=== PATIENT | male | born 1970 | race American Indian/Alaskan Native ===

== ENCOUNTER 2020-09-03 18:08 | Emergency (ER) | payer SELFPAY ==
[2020-09-03 20:56] VITALS: BP 139/82
--- NOTE | 2020-09-03 20:57 | Event Note ---
ED Screening Note Date of service: 09/03/20 Time: 20:55 ED Screening Note: Patient 50-year-old black -Togolese male who presents for right index finger pain swelling and deformity x3 days. States he struck his finger on a metal pipe and now with swelling and erythema no drainage. Patient describes throbbing as 7/10. This initial assessment/diagnostic orders/clinical plan/treatment(s) is/are subject to change based on patients health status, clinical progression and re- assessment by fellow clinical providers in the ED. Further treatment and workup at subsequent clinical providers discretion. Patient/guardian urged not to elope from the ED as their condition may be serious if not clinically assessed and managed. Initial orders include:
--- NOTE | 2020-09-03 21:25 | XRay Report ---
RIGHT HAND 3 VIEW(S) INDICATION / CLINICAL INFORMATION: right index finger pain swelling erythema COMPARISON: None available. FINDINGS: BONES / JOINT(S): No acute fracture or subluxation. No significant arthritis. SOFT TISSUES: No significant abnormality. ADDITIONAL FINDINGS: None. Signer Name: Sylvester Mirza MD Signed: 09/03/2020 9:20 PM Workstation Name: [id number]
--- NOTE | 2020-09-03 23:49 | Emergency Department Report ---
Upper Extremity - HPI Chief Complaint: Extremity Injury, Upper Stated Complaint: RIGHT HAND INJURY Time Seen by Provider: 09/03/20 22:13 Upper Extremity: Right Ring Finger Occurred When: 3 Days Mechanism: Hit with Object, Other (Times dailyRegion with the tip of his finger resulting in pain with flexion to the distal interphalangeal joint region) Symptoms: Yes Pain with Movement, Yes Deformity, Yes Limited Range of Movement, Yes Swelling, No Numbness, No Weakness, No Bruising/Ecchymosis, No Laceration or Abrasion ED Review of Systems ROS: Stated complaint: RIGHT HAND INJURY Other details as noted in HPI Comment: All other systems reviewed and negative ED Past Medical Hx - Medications Home Medications: Home Medications Medication Instructions Recorded Confirmed Last Taken Type Ketorolac [Toradol] 10 mg PO Q6H PRN #14 tablet 09/03/20 Unknown Rx Upper Extremity Exam - Exam General: Vital signs noted. No distress. Alert and acting appropriately. Head and Torso: No HEENT Abnormality, No Neck Tenderness, No Chest/Lungs Abnormality, No Abdominal Tenderness, No Back Tenderness Shoulder Exam: Yes Normal Range of Motion in Shoulder, No Shoulder Tenderness, No Clavicle Tenderness, No Shoulder Deformity, No AC Joint Tenderness Arm Exam: No Arm/Humerus Tenderness, No Arm Deformity Elbow: No Elbow Tenderness, No Normal Range of Motion in Elbow, No Elbow Deformity Forearm: No Forearm Tenderness, No Forearm Deformity, No Pain with Pronation, No Pain with Supination Wrist: Yes Normal ROM in Wrist, No Wrist Tenderness, No Wrist Deformity, No Snuffbox Tenderness, No Pain with Axial Thumb Compression Hand: Yes Hand Tenderness, Yes Hand Deformity, Yes Normal ROM in Digit(s), Yes Digit(s) Deformity (At the distal interphalangeal joint region in a partially flexed position unable to extend), No Digit Tenderness, No Tendon Dysfunction CMS Exam: No Broken Skin, No Normal Distal Pulses, No Normal Capillary Refill, No Normal Distal Sensation ED Course Vital Signs 09/03/20 20:49 Temperature 98.8 F Pulse Rate 63 Respiratory 18 Rate Blood Pressure 139/82 [Right] O2 Sat by Pulse 99 Oximetry ED Medical Decision Making - Radiology Data Radiology results: report reviewed [facility] [address] [place] [address] XRay Report Signed Patient: AYLIN DUMONT MR#: [id number] : 1970 Acct:[id number] Age/Sex: 50 / M ADM Date: 09/03/20 Loc: ED Attending Dr: Ordering Physician: ANNIE LICEA NP Date of Service: 09/03/20 Procedure(s): XR hand 3+V RT Accession Number(s): [id number] cc: ANNIE LICEA NP Fluoro Time In Minutes: RIGHT HAND 3 VIEW(S) INDICATION / CLINICAL INFORMATION: right index finger pain swelling erythema COMPARISON: None available. FINDINGS: BONES / JOINT(S): No acute fracture or subluxation. No significant arthritis. SOFT TISSUES: No significant abnormality. ADDITIONAL FINDINGS: None. Signer Name: Sylvester Mirza MD Signed: 09/03/2020 9:20 PM Workstation Name: [id number] Transcribed By: SB Dictated By: SYLVESTER MIRZA MD Electronically Authenticated By: SYLVESTER MIRZA MD Signed Date/Time: 09/03/202119 DD/ 19 TD/TT: - Medical Decision Making 50-year-old male from his keys struck the tip of his finger which resulted in pain to the distal left phalangeal joint with some swelling a couple days ago which is not yet resolved. Presents emerge department wearing a brace for the finger to be evaluated for possible fracture. Critical care attestation.: If time is entered above; I have spent that time in minutes in the direct care of this critically ill patient, excluding procedure time. ED Disposition Clinical Impression: Mallet deformity of right ring finger Disposition: DC-01 TO HOME OR SELFCARE Is pt being admited?: No Does the pt Need Aspirin: No Condition: Stable Instructions: Mallet Finger Additional Instructions: Ice anti-inflammatories follow-up with with orthopedic Prescriptions: Ketorolac [Toradol] 10 mg PO Q6H PRN #14 tablet PRN Reason: Pain Referrals: CARLOS PHILLIPS MD [Primary Care Provider] - 3-5 Days PERNELL BARNEY MD [Staff Physician] - 3-5 Days
== END 2020-09-04 01:00 | disposition home or self-care (01) ==
LOC: ED 18:08
DX: M20.011 Mallet finger of right finger(s) (principal); Z79.899 Other long term (current) drug therapy

== ENCOUNTER 2021-08-26 05:25 | Observation (INO) | payer OTHER ==
[2021-08-26 06:24] LABS: Basophils # (Auto) 0.1 K/mm3 (0.0-0.1); Basophils % (Auto) 1.5 % (0.0-1.8); Eosinophils % (Auto) 0.8 % (0.0-4.3); Hematocrit 42.2 % (35.5-45.6); Hemoglobin 14.3 gm/dl (11.8-15.2); Lymphocytes # (Auto) 2.4 K/mm3 (1.2-5.4); Lymphocytes % (Auto) 47.9 % (13.4-35.0); Mean Corpuscular HGB Conc 34 % (32-34); Mean Corpuscular Volume 97 fl (84-94); Monocytes # (Auto) 0.7 K/mm3 (0.0-0.8); Monocytes % (Auto) 13.9 % (0.0-7.3); Platelet Count 265 K/mm3 (140-440); Red Blood Count 4.34 M/mm3 (3.65-5.03); Red Cell Distribution Width 13.8 % (13.2-15.2)
--- NOTE | 2021-08-26 06:25 | XRay Report ---
CHEST 2 VIEWS INDICATION / CLINICAL INFORMATION: CHEST PAIN. COMPARISON: None available. FINDINGS: SUPPORT DEVICES: None. HEART / MEDIASTINUM: Heart size and mediastinal contour appear within normal limits. LUNGS / PLEURA: No significant pulmonary or pleural abnormality. No pneumothorax. BONES: No significant osseous abnormality. ADDITIONAL FINDINGS: No significant additional findings. IMPRESSION: 1. No active cardiopulmonary disease. Signer Name: Casimiro Romo II, MD Signed: 08/26/2021 6:20 AM Workstation Name: [id number]
[2021-08-26 06:56] LABS: Alanine Aminotransferase 15 units/L (7-56); BUN/Creatinine Ratio 10; Blood Urea Nitrogen 8 mg/dL (9-20); Calcium 9.6 mg/dL (8.4-10.2); Hemolysis Index 4
[2021-08-26 07:32] LABS: Chol/HDL Ratio 2.15 %; HDL Cholesterol 83 mg/dL (40-59); LDL Cholesterol,Direct 94 mg/dL (50-130)
--- NOTE | 2021-08-26 07:43 | Event Note ---
Date: 08/26/21 (0743) elevated troponin noted charge nurse - no answer on phone unit assistant and MD aware
--- NOTE | 2021-08-26 18:58 | Electrocardiograph Report ---
[facility] Test Date: 2021-08-26 Test Time: 05:30:41 Pat Name: AYLIN DUMONT Department: Room: Gender: M Drafter Patent: DANELLE : 1970 Requested By: ED DOC Order Number: [id number] Reading MD: Lizzie Neal Measurements Intervals [place] Rate: 56 P: 24 [place]: 106 QRS: 82 QRSD: 79 T: 119 QT: 538 QTc: 520 Interpretive Statements Sinus rhythm Anteroseptal infarct, age indeterminate Abnormal T, consider ischemia, lateral leads Prolonged QT interval No previous ECG available for comparison Electronically Signed On 08-26-2021 18:58:26 EDT by Lizzie Neal
[2021-08-26] MEDS ORDERED: MORPHINE 4 MG/1 ML INJ IV ONE (20:51)
[2021-08-26] MEDS ORDERED: ASPIRIN 81 MG TAB CHEW PO ONE (20:52)
[2021-08-26] MEDS ORDERED: HEPARIN 10,000 UNITS/10 ML VIAL IV ONE (22:24)
[2021-08-26] MEDS ORDERED: ONDANSETRON 4 MG/2 ML INJ IV PRN (22:49)
[2021-08-26] MEDS ORDERED: traMADol 50 MG TAB PO PRN (22:49)
[2021-08-26] MEDS ORDERED: MORPHINE 4 MG/1 ML INJ IV PRN ×2 (22:49)
[2021-08-26] MEDS ORDERED: MAGNESIUM HYDROXIDE (MOM) ORAL LIQD UDC PO PRN (22:49)
[2021-08-26] MEDS ORDERED: NITROGLYCERIN 0.4 MG TAB SUBL SL PRN (22:49)
[2021-08-26] MEDS ORDERED: ACETAMINOPHEN 325 MG TAB PO PRN ×2 (22:49)
[2021-08-26] MEDS ORDERED: MORPHINE 2 MG/1 ML INJ IV PRN (22:49)
--- NOTE | 2021-08-26 23:01 | History and Physical Report ---
History of Present Illness Date of examination: 08/26/21 Date of admission: 08/26/2021 Chief complaint: Chest pain History of present illness: 51-year-old -Vincentian male with no significant past medical history presenting to the emergency room today complaining of chest pain. Chest pain felt like pressure in the midsternal region radiating to both upper extremities. There has been no known relieving or exacerbating factor. Denies any nausea or vomiting and no abdominal pain. Denies any headache or dizziness no diaphoresis. Patient denies having similar symptoms in the past. Patient admits that he smokes more than a pack of cigarettes on significant findings were that of 1 daily basis. He has never had any cardiac work-up. Work-up in the emergency room today, significant findings were slightly elevated troponin of 0.77. EKG shows some T wave depression in V2. Chest x-ray was unremarkable. Patient has been admitted for NSTEMI. Past History Past Medical History: No medical history Past Surgical History: No surgical history Social history: smoking (Current daily smoker) Family history: no significant family history Medications and Allergies Allergies Allergy/AdvReac Type Severity Reaction Status Date / Time No Known Allergies Allergy Verified 09/03/20 21:57 Home Medications Medication Instructions Recorded Confirmed Last Taken Type Ketorolac [Toradol] 10 mg PO Q6H PRN #14 tablet 09/03/20 Unknown Rx Active Meds: Active Medications Acetaminophen (Acetaminophen 325 Mg Tab) 650 mg PO Q4H PRN PRN Reason: Pain MILD(1-3)/Fever >100.5/GARCIA Aspirin (Aspirin Ec 325 Mg Tab) 325 mg PO QDAY MCKENNA Magnesium Hydroxide (Magnesium Hydroxide (Mom) Oral Liqd Udc) 30 ml PO Q4H PRN PRN Reason: Constipation Morphine Sulfate (Morphine 2 Mg/1 Ml Inj) 2 mg IV Q4H PRN PRN Reason: Pain, Moderate (4-6) Morphine Sulfate (Morphine 4 Mg/1 Ml Inj) 4 mg IV Q4H PRN PRN Reason: Pain , Severe (7-10) Morphine Sulfate (Morphine 4 Mg/1 Ml Inj) 2 mg IV Q5MIN PRN PRN Reason: Chest Pain unrelieved by NTG Nitroglycerin (Nitroglycerin 0.4 Mg Tab Subl) 0.4 mg SL Q5M PRN PRN Reason: Chest Pain Ondansetron HCl (Ondansetron 4 Mg/2 Ml Inj) 4 mg IV Q8H PRN PRN Reason: Nausea And Vomiting Sodium Chloride (Sodium Chloride 0.9% 10 Ml Flush Syringe) 10 ml IV BID MCKENNA Sodium Chloride (Sodium Chloride 0.9% 10 Ml Flush Syringe) 10 ml IV PRN PRN PRN Reason: LINE FLUSH Sodium Chloride (Sodium Chloride 0.9% 10 Ml Flush Syringe) 10 ml IV PRN PRN PRN Reason: LINE FLUSH Tramadol HCl (Tramadol 50 Mg Tab) 50 mg PO Q6H PRN PRN Reason: Pain, Moderate (4-6) Review of Systems Constitutional: no fever, no chills Ears, nose, mouth and throat: no nasal congestion, no sore throat Cardiovascular: chest pain, no palpitations Respiratory: no cough, no shortness of breath Gastrointestinal: no abdominal pain, no nausea, no vomiting, no diarrhea Genitourinary Male: no dysuria, no hematuria, no nocturia Musculoskeletal: no neck pain, no low back pain Integumentary: no rash, no pruritis Psychiatric: no anxiety, no depression Endocrine: no polyphagia, no polydipsia, no polyuria, no nocturia Exam - Constitutional Vitals: Temp Pulse Resp BP Pulse Ox 98.0 F 53 L 17 129/87 99 08/26/21 05:28 08/26/21 22:01 08/26/21 22:01 08/26/21 22:01 08/26/21 22:01 General appearance: Present: no acute distress, well-nourished - EENT Eyes: Present: PERRL, EOM intact. Absent: scleral icterus ENT: hearing intact, clear oral mucosa, dentition normal - Neck Neck: Present: supple, normal ROM - Respiratory Respiratory effort: normal Respiratory: bilateral: CTA - Cardiovascular Rhythm: regular Heart Sounds: Present: S1 & S2. Absent: gallop, systolic murmur, diastolic murmur, rub, click - Extremities Extremities: no ischemia, pulses intact, pulses symmetrical, No edema, normal temperature, Full ROM Peripheral Pulses: within normal limits - Abdominal General gastrointestinal: Present: soft, non-tender, non-distended, normal bowel sounds. Absent: mass - Integumentary Integumentary: Present: clear, warm, dry, normal turgor. Absent: rash - Musculoskeletal Musculoskeletal: strength equal bilaterally - Psychiatric Psychiatric: appropriate mood/affect, intact judgment & insight, memory intact, cooperative - Neurologic Neurologic: CNII-XII intact, no focal deficits, moves all extremities HEART Score - HEART Score History: Moderately suspicious EKG: Non-specific Age: 45-65 Risk factors: 1-2 risk factors Troponin: Troponin T 0.018 ng/mL (0.00-0.029) 08/26/21 17:41 Troponin: 1-3x normal limit HEART Score: 5 Results - Labs CBC & Chem 7: 08/26/21 23:07 08/26/21 23:07 Labs: Abnormal lab results 08/26/21 08/26/21 08/26/21 Range/Units 06:04 06:04 08:29 MCV 97 H (84-94) fl MCH 33 H (28-32) pg Lymph % (Auto) 47.9 H (13.4-35.0) % [place] % (Auto) 13.9 H (0.0-7.3) % Seg Neutrophils % 35.9 L (40.0-70.0) % BUN 8 L (9-20) mg/dL Glucose 108 H (75-100) mg/dL Troponin T 0.077 H 0.069 H (0.00-0.029) ng/mL HDL Cholesterol 83 H (40-59) mg/dL Assessment and Plan Assessment: 1. Chest pain 2. NSTEMI 3. Tobacco abuse Plan: 1. Patient admitted and placed on telemetry. We will check serial cardiac enzymes. 2. Patient will be scheduled for stress test and echocardiogram. 3. Counseled on quitting tobacco use. 4. Consult placed to cardiology for evaluation. DVT prophylaxis: Patient currently on heparin drip. CODE STATUS: Full code
--- NOTE | 2021-08-26 23:16 | Emergency Department Report ---
ED Chest Pain HPI - General Chief Complaint: Chest Pain Stated Complaint: CHEST PAIN Time Seen by Provider: 08/26/21 20:49 Source: patient Mode of arrival: Ambulatory Limitations: No Limitations - History of Present Illness Initial Comments: Who presents with chest pain that has been going on for the last 3 days. Patient states chest pain is moderate is a pressure feeling on his chest he states that it radiates to his arms. He has no nausea or vomiting. He states he has never had chest pain like this before in the past. Severity scale (0 -10): 6 - Related Data Previous Rx's Medication Instructions Recorded Last Taken Type Ketorolac [Toradol] 10 mg PO Q6H PRN #14 tablet 09/03/20 Unknown Rx Allergies Allergy/AdvReac Type Severity Reaction Status Date / Time No Known Allergies Allergy Verified 09/03/20 21:57 Heart Score - HEART Score History: Moderately suspicious EKG: Non-specific Age: 45-65 Risk factors: 1-2 risk factors Troponin: 1-3x normal limit HEART Score: 5 - EKG Read Time Time EKG Completed: 10:00 EKG Read Time: 10:15 ED Review of Systems ROS: Stated complaint: CHEST PAIN Other details as noted in HPI Constitutional: denies: chills, fever Eyes: denies: eye pain, eye discharge, vision change ENT: denies: ear pain, throat pain Respiratory: denies: cough, shortness of breath, wheezing Cardiovascular: chest pain. denies: palpitations Endocrine: no symptoms reported Gastrointestinal: denies: abdominal pain, nausea, diarrhea Genitourinary: denies: urgency, dysuria Musculoskeletal: denies: back pain, joint swelling, arthralgia Skin: denies: rash, lesions Neurological: denies: headache, weakness, paresthesias Psychiatric: denies: anxiety, depression Hematological/Lymphatic: denies: easy bleeding, easy bruising ED Past Medical Hx - Medications Home Medications: Home Medications Medication Instructions Recorded Confirmed Last Taken Type Ketorolac [Toradol] 10 mg PO Q6H PRN #14 tablet 09/03/20 Unknown Rx ED Physical Exam - General Limitations: No Limitations General appearance: alert, in no apparent distress - Head Head exam: Present: atraumatic, normocephalic - Eye Eye exam: Present: normal appearance - ENT ENT exam: Present: mucous membranes moist - Neck Neck exam: Present: normal inspection - Respiratory Respiratory exam: Present: normal lung sounds bilaterally. Absent: respiratory distress - Cardiovascular Cardiovascular Exam: Present: regular rate, normal rhythm. Absent: systolic murmur, diastolic murmur, rubs, gallop - GI/Abdominal GI/Abdominal exam: Present: soft, normal bowel sounds - Rectal Rectal exam: Present: deferred - Extremities Exam Extremities exam: Present: normal inspection - Back Exam Back exam: Present: normal inspection - Neurological Exam Neurological exam: Present: alert, oriented X3 - Psychiatric Psychiatric exam: Present: normal affect, normal mood - Skin Skin exam: Present: warm, dry, intact, normal color. Absent: rash ED Course Vital Signs 08/26/21 08/26/21 08/26/21 05:28 19:21 19:31 Temperature 98.0 F Pulse Rate 62 64 62 Respiratory 20 22 19 Rate Blood Pressure 159/92 O2 Sat by Pulse 100 100 99 Oximetry 08/26/21 08/26/21 08/26/21 19:45 20:01 20:15 Temperature Pulse Rate 68 65 65 Respiratory 17 14 15 Rate Blood Pressure 128/88 128/88 O2 Sat by Pulse 99 99 99 Oximetry 08/26/21 08/26/21 08/26/21 20:31 20:45 21:01 Temperature Pulse Rate 64 64 59 L Respiratory 12 12 21 Rate Blood Pressure 128/88 128/88 129/87 O2 Sat by Pulse 99 99 100 Oximetry 08/26/21 08/26/21 08/26/21 21:15 21:31 21:45 Temperature Pulse Rate 61 63 53 L Respiratory 15 16 15 Rate Blood Pressure 129/87 129/87 129/87 O2 Sat by Pulse 99 99 98 Oximetry 08/26/21 22:01 Temperature Pulse Rate 53 L Respiratory 17 Rate Blood Pressure 129/87 O2 Sat by Pulse 99 Oximetry CAMDEN score - Camden Score Age > 65: (0) No Aspirin use within the Past 7 Days: (0) No 3 or more CAD Risk Factors: (0) No 2 or more Angina events in past 24 hrs: (0) No Known CAD with more than 50% Stenosis: (0) No Elevated Cardiac Markers: (1) Yes ST Deviation Greater than 0.5mm: (0) No CAMDEN Score: 1 ED Medical Decision Making - Lab Data Result diagrams: 08/26/21 06:04 08/26/21 06:04 Lab Results 08/26/21 08/26/21 08/26/21 Range/Units 06:04 06:04 08:29 WBC 4.9 (4.5-11.0) K/mm3 RBC 4.34 (3.65-5.03) M/mm3 Hgb 14.3 (11.8-15.2) gm/dl Hct 42.2 (35.5-45.6) % MCV 97 H (84-94) fl MCH 33 H (28-32) pg MCHC 34 (32-34) % RDW 13.8 (13.2-15.2) % Plt Count 265 (140-440) K/mm3 Lymph % (Auto) 47.9 H (13.4-35.0) % [place] % (Auto) 13.9 H (0.0-7.3) % Eos % (Auto) 0.8 (0.0-4.3) % Baso % (Auto) 1.5 (0.0-1.8) % Lymph # (Auto) 2.4 (1.2-5.4) K/mm3 [place] # (Auto) 0.7 (0.0-0.8) K/mm3 Eos # (Auto) 0.0 (0.0-0.4) K/mm3 Baso # (Auto) 0.1 (0.0-0.1) K/mm3 Seg Neutrophils % 35.9 L (40.0-70.0) % Seg Neutrophils # 1.8 (1.8-7.7) K/mm3 Sodium 141 (137-145) mmol/L Potassium 4.0 (3.6-5.0) mmol/L Chloride 103.1 (98-107) mmol/L Carbon Dioxide 23 (22-30) mmol/L Anion Gap 19 mmol/L BUN 8 L (9-20) mg/dL Creatinine 0.8 (0.8-1.3) mg/dL Estimated GFR > 60 ml/min BUN/Creatinine Ratio 10 % Glucose 108 H (75-100) mg/dL Calcium 9.6 (8.4-10.2) mg/dL Total Bilirubin 0.60 (0.1-1.2) mg/dL AST 29 (5-40) units/L ALT 15 (7-56) units/L Alkaline Phosphatase 57 (35-129) units/L Troponin T 0.077 H 0.069 H (0.00-0.029) ng/mL Total Protein 6.9 (6.3-8.2) g/dL Albumin 4.0 (3.9-5) g/dL Albumin/Globulin Ratio 1.4 % Triglycerides 87 (2-149) mg/dL Cholesterol 179 (50-199) mg/dL LDL Cholesterol Direct 94 (50-130) mg/dL HDL Cholesterol 83 H (40-59) mg/dL Cholesterol/HDL Ratio 2.15 % 08/26/21 Range/Units 17:41 WBC (4.5-11.0) K/mm3 RBC (3.65-5.03) M/mm3 Hgb (11.8-15.2) gm/dl Hct (35.5-45.6) % MCV (84-94) fl MCH (28-32) pg MCHC (32-34) % RDW (13.2-15.2) % Plt Count (140-440) K/mm3 Lymph % (Auto) (13.4-35.0) % [place] % (Auto) (0.0-7.3) % Eos % (Auto) (0.0-4.3) % Baso % (Auto) (0.0-1.8) % Lymph # (Auto) (1.2-5.4) K/mm3 [place] # (Auto) (0.0-0.8) K/mm3 Eos # (Auto) (0.0-0.4) K/mm3 Baso # (Auto) (0.0-0.1) K/mm3 Seg Neutrophils % (40.0-70.0) % Seg Neutrophils # (1.8-7.7) K/mm3 Sodium (137-145) mmol/L Potassium (3.6-5.0) mmol/L Chloride (98-107) mmol/L Carbon Dioxide (22-30) mmol/L Anion Gap mmol/L BUN (9-20) mg/dL Creatinine (0.8-1.3) mg/dL Estimated GFR ml/min BUN/Creatinine Ratio % Glucose (75-100) mg/dL Calcium (8.4-10.2) mg/dL Total Bilirubin (0.1-1.2) mg/dL AST (5-40) units/L ALT (7-56) units/L Alkaline Phosphatase (35-129) units/L Troponin T 0.018 (0.00-0.029) ng/mL Total Protein (6.3-8.2) g/dL Albumin (3.9-5) g/dL Albumin/Globulin Ratio % Triglycerides (2-149) mg/dL Cholesterol (50-199) mg/dL LDL Cholesterol Direct (50-130) mg/dL HDL Cholesterol (40-59) mg/dL Cholesterol/HDL Ratio % - EKG Data -: EKG Interpreted by Me - EKG Data 08/26/21 23:26 EKG time 22: 01 rate 52 sinus bradycardia anteroseptal infarct T wave inversions in V2 and V T3 prolonged QT interval impression abnormal EKG - Radiology Data Radiology results: report reviewed Chest x-ray: Shows no acute cardiopulmonary disease - Medical Decision Making Chief medical diagnosis: Non-STEMI Differential medical diagnosis: Arrhythmia, acute coronary syndrome I will get 3 sets of troponin I will admit patient to the hospital I will give patient aspirin morphine I will reevaluate the patient Critical care attestation.: If time is entered above; I have spent that time in minutes in the direct care of this critically ill patient, excluding procedure time. ED Disposition Clinical Impression: Non-STEMI (non-ST elevated myocardial infarction) Disposition: ADMITTED INPATIENT Is pt being admited?: Yes Does the pt Need Aspirin: No Condition: Stable
[2021-08-26 23:35] LABS: Hematocrit 43.6 % (35.5-45.6); Hemoglobin 14.8 gm/dl (11.8-15.2); Mean Corpuscular HGB Conc 34 % (32-34); Mean Corpuscular Volume 99 fl (84-94); Platelet Count 271 K/mm3 (140-440); Red Blood Count 4.42 M/mm3 (3.65-5.03)
[2021-08-26 23:49] LABS: BUN/Creatinine Ratio 11; Blood Urea Nitrogen 9 mg/dL (9-20); Calcium 9.8 mg/dL (8.4-10.2); Hemolysis Index 3
[2021-08-27] MEDS ORDERED: MAGNESIUM SULFATE 2 GM/50 ML BAG IV ONE
[2021-08-27 02:11] LABS: Band Neutrophils # (Manual) 0.1 K/mm3; Basophils % (Manual) 0 % (0.0-1.8); Eosinophils % (Manual) 0 % (0.0-4.3); Total Cells Counted 100
[2021-08-27 02:13] LABS: Platelet Estimate Consistent w Auto
[2021-08-27] MEDS ORDERED: HEPARIN 10,000 UNITS/10 ML VIAL IV PRN (03:00)
[2021-08-27] MEDS ORDERED: HEPARIN/ 0.45% NACL DRIP 25,000 UNIT/500 ML BAG IV SCH (03:00)
[2021-08-27 04:55] LABS: Hematocrit 42.8 % (35.5-45.6); Hemoglobin 14.5 gm/dl (11.8-15.2); Mean Corpuscular HGB Conc 34 % (32-34); Mean Corpuscular Volume 97 fl (84-94); Platelet Count 245 K/mm3 (140-440)
[2021-08-27 05:02] LABS: INR 0.82 (0.87-1.13)
[2021-08-27 05:03] LABS: Partial Thromboplastin Time 27.2 Sec. (24.2-36.6)
[2021-08-27 05:05] LABS: BUN/Creatinine Ratio 14; Blood Urea Nitrogen 10 mg/dL (9-20); Hemolysis Index 24
[2021-08-27 06:34] LABS: Basophils % (Manual) 0 % (0.0-1.8); Total Cells Counted 100
[2021-08-27 06:35] LABS: Platelet Estimate Consistent w Auto
[2021-08-27] MEDS ORDERED: REGADENOSON 0.4 MG/5 ML INJ IV ONE (08:17)
[2021-08-27] MEDS ORDERED: ASPIRIN EC 325 MG TAB PO SCH (10:00)
--- NOTE | 2021-08-27 10:29 | Consultation ---
History of Present Illness Consult date: 08/27/21 Consult reason: chest pain History of present illness: Patient is a 51-year-old man who is a chronic tobacco abuser, admitted with c hest pain. He describes a history of chest pain work-up 20 years ago, at [facility] [place], otherwise, no recent cardiac history. On his presentation to the emergency room, he had work-up including serial ECGs, was admitted for rule out protocol and ordered to the stress lab for a stress test by the admitting medical service. However my review of the ECG showed that the patient has deep anterior T wave changes, very suspicious for ischemic LAD disease. As a result, I will cancel the stress test and instead proceed with a diagnostic coronary angiography. Risks and benefits discussed with the patient and he consents to proceed. Past History Past Medical History: other (Chronic tobacco abuse) Past Surgical History: No surgical history Social history: smoking (Current daily smoker) Family history: no significant family history Medications and Allergies Allergies Allergy/AdvReac Type Severity Reaction Status Date / Time No Known Allergies Allergy Verified 09/03/20 21:57 Home Medications Medication Instructions Recorded Confirmed Last Taken Type Ketorolac [Toradol] 10 mg PO Q6H PRN #14 tablet 09/03/20 Unknown Rx Active Meds: Active Medications Acetaminophen (Acetaminophen 325 Mg Tab) 650 mg PO Q4H PRN PRN Reason: Pain MILD(1-3)/Fever >100.5/GARCIA Aspirin (Aspirin Ec 325 Mg Tab) 325 mg PO QDAY MCKENNA Heparin Sodium/Sodium Chloride (Heparin/ 0.45% Nacl-25,000 Unit/500 Ml) 25,000 unit in 500 mls @ 15 mls/hr IV TITRATE MCKENNA; Protocol Last Admin: 08/27/21 04:44 Dose: 750 units/hr, 15 mls/hr Magnesium Hydroxide (Magnesium Hydroxide (Mom) Oral Liqd Udc) 30 ml PO Q4H PRN PRN Reason: Constipation Morphine Sulfate (Morphine 2 Mg/1 Ml Inj) 2 mg IV Q4H PRN PRN Reason: Pain, Moderate (4-6) Morphine Sulfate (Morphine 4 Mg/1 Ml Inj) 4 mg IV Q4H PRN PRN Reason: Pain , Severe (7-10) Morphine Sulfate (Morphine 4 Mg/1 Ml Inj) 2 mg IV Q5MIN PRN PRN Reason: Chest Pain unrelieved by NTG Nitroglycerin (Nitroglycerin 0.4 Mg Tab Subl) 0.4 mg SL Q5M PRN PRN Reason: Chest Pain Ondansetron HCl (Ondansetron 4 Mg/2 Ml Inj) 4 mg IV Q8H PRN PRN Reason: Nausea And Vomiting Sodium Chloride (Sodium Chloride 0.9% 10 Ml Flush Syringe) 10 ml IV BID MCKENNA Sodium Chloride (Sodium Chloride 0.9% 10 Ml Flush Syringe) 10 ml IV PRN PRN PRN Reason: LINE FLUSH Tramadol HCl (Tramadol 50 Mg Tab) 50 mg PO Q6H PRN PRN Reason: Pain, Moderate (4-6) Review of Systems Cardiovascular: chest pain, shortness of breath, no orthopnea, no palpitations, no rapid/irregular heart beat, no edema, no syncope, no lightheadedness Physical Examination Vital Signs Temp Pulse Resp BP Pulse Ox 98.0 F 62 20 159/92 100 08/26/21 05:28 08/26/21 05:28 08/26/21 05:28 08/26/21 05:08/26/21 05:28 General appearance: no acute distress HEENT: Positive: PERRL Neck: Positive: neck supple Cardiac: Positive: Reg Rate and Rhythm Lungs: Positive: Decreased Breath Sounds Neuro: Positive: Grossly Intact Abdomen: Positive: Soft Male genitourinary: Positive: deferred Skin: Positive: Clear Extremities: Absent: edema Results 08/27/21 04:32 08/27/21 04:32 Cardiac Enzymes 08/26/21 Range/Units 06:04 AST 29 (5-40) units/L Coagulation 08/27/21 Range/Units 04:32 PT 12.1 L (12.2-14.9) Sec. INR 0.82 L (0.87-1.13) APTT 27.2 (24.2-36.6) Sec. Lipids 08/26/21 Range/Units 06:04 Triglycerides 87 (2-149) mg/dL Cholesterol 179 (50-199) mg/dL HDL Cholesterol 83 H (40-59) mg/dL Cholesterol/HDL Ratio 2.15 % CBC 08/26/21 08/27/21 Range/Units 23:07 04:32 WBC 6.6 5.2 (4.5-11.0) K/mm3 RBC 4.42 4.40 (3.65-5.03) M/mm3 Hgb 14.8 14.5 (11.8-15.2) gm/dl Hct 43.6 42.8 (35.5-45.6) % Plt Count 271 245 (140-440) K/mm3 Comprehensive Metabolic Panel 08/26/21 08/26/21 08/27/21 Range/Units 06:04 23:07 04:32 Sodium 141 138 135 L (137-145) mmol/L Potassium 4.0 4.7 4.3 (3.6-5.0) mmol/L Chloride 103.1 100.0 99.2 (98-107) mmol/L Carbon Dioxide 23 25 25 (22-30) mmol/L BUN 8 L 9 10 (9-20) mg/dL Creatinine 0.8 0.8 0.7 L (0.8-1.3) mg/dL Glucose 108 H 90 92 (75-100) mg/dL Calcium 9.6 9.8 9.0 (8.4-10.2) mg/dL AST 29 (5-40) units/L ALT 15 (7-56) units/L Alkaline Phosphatase 57 (35-129) units/L Total Protein 6.9 (6.3-8.2) g/dL Albumin 4.0 (3.9-5) g/dL EKG interpretations - Telemetry EKG Rhythm: Sinus Bradycardia (With deep anterior T wave inversions) Assessment and Plan - Patient Problems (1) Unstable angina Current Visit: Yes Status: Acute Plan to address problem: 51-year-old male with chronic tobacco abuse, presents with chest pain associated with deep anterior T wave inversions on ECG, highly suspicious for acute LAD territory ischemia. He was ordered for a stress test by the medical service which I will cancel and instead proceed with diagnostic coronary angiography. Risks and benefits discussed with the patient and he consents to proceed.
[2021-08-27] MEDS: SODIUM CHLORIDE 0.9% 500 ML 500 ML IV SCH ×2 (11:18→12:05)
[2021-08-27] MEDS ORDERED: CLOPIDOGREL 300 MG TAB PO ONE (11:30)
--- NOTE | 2021-08-27 11:44 | Progress Note ---
Hospitalist Physical - Constitutional Vitals: Temp Pulse Resp BP Pulse Ox 97.9 F 53 L 16 152/87 100 08/27/21 08:01 08/27/21 08:01 08/27/21 08:01 08/27/21 08:01 08/27/21 08:01 General appearance: Present: no acute distress HEART Score - HEART Score EKG: Non-specific Age: 45-65 Risk factors: 1-2 risk factors Troponin: Troponin T 0.015 ng/mL (0.00-0.029) 08/27/21 04:32 Troponin: 1-3x normal limit Results - Labs CBC & Chem 7: 08/27/21 04:32 08/27/21 04:32 Labs: Laboratory Last Values WBC 5.2 K/mm3 (4.5-11.0) 08/27/21 04:32 RBC 4.40 M/mm3 (3.65-5.03) 08/27/21 04:32 Hgb 14.5 gm/dl (11.8-15.2) 08/27/21 04:32 Hct 42.8 % (35.5-45.6) 08/27/21 04:32 MCV 97 fl (84-94) H 08/27/21 04:32 MCH 33 pg (28-32) H 08/27/21 04:32 MCHC 34 % (32-34) 08/27/21 04:32 RDW 14.0 % (13.2-15.2) 08/27/21 04:32 Plt Count 245 K/mm3 (140-440) 08/27/21 04:32 Lymph % (Auto) 47.9 % (13.4-35.0) H 08/26/21 06:04 Amador % (Auto) 13.9 % (0.0-7.3) H 08/26/21 06:04 Eos % (Auto) 0.8 % (0.0-4.3) 08/26/21 06:04 Baso % (Auto) 1.5 % (0.0-1.8) 08/26/21 06:04 Lymph # (Auto) 2.4 K/mm3 (1.2-5.4) 08/26/21 06:04 [place] # (Auto) 0.7 K/mm3 (0.0-0.8) 08/26/21 06:04 Eos # (Auto) 0.0 K/mm3 (0.0-0.4) 08/26/21 06:04 Baso # (Auto) 0.1 K/mm3 (0.0-0.1) 08/26/21 06:04 Add Manual Diff Complete 08/27/21 04:32 Total Counted 100 08/27/21 04:32 Seg Neutrophils % Day Spa Manager 08/27/21 04:32 Seg Neuts % (Manual) 29.0 % (40.0-70.0) L 08/27/21 04:32 Band Neutrophils % 0 % 08/27/21 04:32 Lymphocytes % (Manual) 58.0 % (13.4-35.0) H 08/27/21 04:32 Reactive Lymphs % (Man) 0 % 08/27/21 04:32 Monocytes % (Manual) 10.0 % (0.0-7.3) H 08/27/21 04:32 Eosinophils % (Manual) 3.0 % (0.0-4.3) 08/27/21 04:32 Basophils % (Manual) 0 % (0.0-1.8) 08/27/21 04:32 Metamyelocytes % 0 % 08/27/21 04:32 Myelocytes % 0 % 08/27/21 04:32 Promyelocytes % 0 % 08/27/21 04:32 Blast Cells % 0 % 08/27/21 04:32 Nucleated RBC % Not Reportable 08/27/21 04:32 Seg Neutrophils # 1.8 K/mm3 (1.8-7.7) 08/26/21 06:04 Seg Neutrophils # Man 1.5 K/mm3 (1.8-7.7) L 08/27/21 04:32 Band Neutrophils # 0.0 K/mm3 08/27/21 04:32 Lymphocytes # (Manual) 3.0 K/mm3 (1.2-5.4) 08/27/21 04:32 Abs React Lymphs (Man) 0.0 K/mm3 08/27/21 04:32 Monocytes # (Manual) 0.5 K/mm3 (0.0-0.8) 08/27/21 04:32 Eosinophils # (Manual) 0.2 K/mm3 (0.0-0.4) 08/27/21 04:32 Basophils # (Manual) 0.0 K/mm3 (0.0-0.1) 08/27/21 04:32 Metamyelocytes # 0.0 K/mm3 08/27/21 04:32 Myelocytes # 0.0 K/mm3 08/27/21 04:32 Promyelocytes # 0.0 K/mm3 08/27/21 04:32 Blast Cells # 0.0 K/mm3 08/27/21 04:32 WBC Morphology Not Reportable 08/27/21 04:32 Hypersegmented Neuts Not Reportable 08/27/21 04:32 Hyposegmented Neuts Not Reportable 08/27/21 04:32 Hypogranular Neuts Not Reportable 08/27/21 04:32 Smudge Cells Not Reportable 08/27/21 04:32 Toxic Granulation Not Reportable 08/27/21 04:32 Toxic Vacuolation Not Reportable 08/27/21 04:32 Dohle Bodies Not Reportable 08/27/21 04:32 Pelger-Huet Anomaly Not Reportable 08/27/21 04:32 Rufino Rods Not Reportable 08/27/21 04:32 Platelet Estimate Consistent w auto 08/27/21 04:32 Clumped Platelets Not Reportable 08/27/21 04:32 Plt Clumps, EDTA Not Reportable 08/27/21 04:32 Large Platelets Not Reportable 08/27/21 04:32 Giant Platelets Not Reportable 08/27/21 04:32 Platelet Satelliting Not Reportable 08/27/21 04:32 Plt Morphology Comment Not Reportable 08/27/21 04:32 RBC Morphology Not Reportable 08/27/21 04:32 Dimorphic RBCs Not Reportable 08/27/21 04:32 Polychromasia Not Reportable 08/27/21 04:32 Hypochromasia Not Reportable 08/27/21 04:32 Poikilocytosis Not Reportable 08/27/21 04:32 Anisocytosis Not Reportable 08/27/21 04:32 Microcytosis Not Reportable 08/27/21 04:32 Macrocytosis Not Reportable 08/27/21 04:32 Spherocytes Not Reportable 08/27/21 04:32 Pappenheimer Bodies Not Reportable 08/27/21 04:32 Sickle Cells Not Reportable 08/27/21 04:32 Target Cells Not Reportable 08/27/21 04:32 Tear Drop Cells Not Reportable 08/27/21 04:32 Ovalocytes Not Reportable 08/27/21 04:32 Helmet Cells Not Reportable 08/27/21 04:32 Pinedo-Crestwood Bodies Not Reportable 08/27/21 04:32 [place] Rings Not Reportable 08/27/21 04:32 [place] Cells Not Reportable 08/27/21 04:32 Bite Cells Not Reportable 08/27/21 04:32 Crenated Cell Not Reportable 08/27/21 04:32 Elliptocytes Not Reportable 08/27/21 04:32 Acanthocytes (Spur) Not Reportable 08/27/21 04:32 Rouleaux Not Reportable 08/27/21 04:32 Hemoglobin C Crystals Not Reportable 08/27/21 04:32 Schistocytes Not Reportable 08/27/21 04:32 Malaria parasites Not Reportable 08/27/21 04:32 Jalen Bodies Not Reportable 08/27/21 04:32 Hem Pathologist Commnt No 08/27/21 04:32 PT 12.1 Sec. (12.2-14.9) L 08/27/21 04:32 INR 0.82 (0.87-1.13) L 08/27/21 04:32 APTT 27.2 Sec. (24.2-36.6) 08/27/21 04:32 Sodium 135 mmol/L (137-145) L 08/27/21 04:32 Potassium 4.3 mmol/L (3.6-5.0) 08/27/21 04:32 Chloride 99.2 mmol/L (98-107) 08/27/21 04:32 Carbon Dioxide 25 mmol/L (22-30) 08/27/21 04:32 Anion Gap 15 mmol/L 08/27/21 04:32 BUN 10 mg/dL (9-20) 08/27/21 04:32 Creatinine 0.7 mg/dL (0.8-1.3) L 08/27/21 04:32 Estimated GFR > 60 ml/min 08/27/21 04:32 BUN/Creatinine Ratio 14 % 08/27/21 04:32 Glucose 92 mg/dL (75-100) 08/27/21 04:32 Calcium 9.0 mg/dL (8.4-10.2) 08/27/21 04:32 Total Bilirubin 0.60 mg/dL (0.1-1.2) 08/26/21 06:04 AST 29 units/L (5-40) 08/26/21 06:04 ALT 15 units/L (7-56) 08/26/21 06:04 Alkaline Phosphatase 57 units/L (35-129) 08/26/21 06:04 Troponin T 0.015 ng/mL (0.00-0.029) 08/27/21 04:32 Total Protein 6.9 g/dL (6.3-8.2) 08/26/21 06:04 Albumin 4.0 g/dL (3.9-5) 08/26/21 06:04 Albumin/Globulin Ratio 1.4 % 08/26/21 06:04 Triglycerides 87 mg/dL (2-149) 08/26/21 06:04 Cholesterol 179 mg/dL (50-199) 08/26/21 06:04 LDL Cholesterol Direct 94 mg/dL (50-130) 08/26/21 06:04 HDL Cholesterol 83 mg/dL (40-59) H 08/26/21 06:04 Cholesterol/HDL Ratio 2.15 % 08/26/21 06:04 Active Medications - Current Medications Current Medications: Generic Name Dose Route Start Last Admin Trade Name Freq PRN Reason Stop Dose Admin Acetaminophen 650 mg 08/26/21 22:49 Acetaminophen 325 Mg Tab PO Q4H PRN Pain MILD(1-3)/Fever >100.5/GARCIA Aspirin 325 mg 08/27/21 10:00 08/27/21 11:14 Aspirin Ec 325 Mg Tab PO 325 mg QDAY MCKENNA Administration Heparin Sodium/Sodium Chloride 25,000 unit in 500 mls @ 15 mls/hr 08/27/21 03:00 08/27/21 04:44 Heparin/ 0.45% Nacl-25,000 Unit/500 Ml IV 750 units/hr TITRATE MCKENNA 15 mls/hr Administration Protocol 750 UNITS/HR Sodium Chloride 500 mls @ 50 mls/hr 08/27/21 11:00 08/27/21 11:18 Nacl 0.9% 500 Ml IV 08/27/21 20:59 50 mls/hr DIRECT MCKENNA Administration Magnesium Hydroxide 30 ml 08/26/21 22:49 Magnesium Hydroxide (Mom) Oral Liqd Udc PO Q4H PRN Constipation Morphine Sulfate 2 mg 08/26/21 22:49 Morphine 2 Mg/1 Ml Inj IV Q4H PRN Pain, Moderate (4-6) Morphine Sulfate 4 mg 08/26/21 22:49 Morphine 4 Mg/1 Ml Inj IV Q4H PRN Pain , Severe (7-10) Morphine Sulfate 2 mg 08/26/21 22:49 Morphine 4 Mg/1 Ml Inj IV Q5MIN PRN Chest Pain unrelieved by NTG Nitroglycerin 0.4 mg 08/26/21 22:49 Nitroglycerin 0.4 Mg Tab Subl SL Q5M PRN Chest Pain Ondansetron HCl 4 mg 08/26/21 22:49 Ondansetron 4 Mg/2 Ml Inj IV Q8H PRN Nausea And Vomiting Sodium Chloride 10 ml 08/27/21 10:00 Sodium Chloride 0.9% 10 Ml Flush Syringe IV BID MCKENNA Sodium Chloride 10 ml 08/26/21 22:49 Sodium Chloride 0.9% 10 Ml Flush Syringe IV PRN PRN LINE FLUSH Tramadol HCl 50 mg 08/26/21 22:49 Tramadol 50 Mg Tab PO Q6H PRN Pain, Moderate (4-6)
[2021-08-27] MEDS ORDERED: HEPARIN/NS 5000 UNIT/500ML 1,000 ML IR ONE (11:47)
[2021-08-27] MEDS ORDERED: NITROGLYCERIN SYRINGE 3 ML ONE (11:48)
[2021-08-27] MEDS: LIDOCAINE (1%) 10 MG/1 ML VIAL 20 ML MDV ONE ×3 (12:04→13:24)
[2021-08-27] MEDS: VERAPAMIL 5 MG/2 ML INJ ONE ×3 (12:04→13:27)
[2021-08-27] MEDS: HEPARIN 10,000 UNITS/10 ML VIAL ONE ×3 (12:04→13:27)
[2021-08-27] MEDS: NITROGLYCERIN SYRINGE 3 ML ONE ×2 (12:05→12:27)
[2021-08-27] MEDS: MIDAZOLAM 2 MG/2 ML INJ ONE ×2 (12:09→13:24)
[2021-08-27] MEDS: fentaNYL 100 MCG/2 ML INJ ONE ×2 (12:09→13:24)
[2021-08-27] MEDS ORDERED: SODIUM CHLORIDE 0.9% 500 ML 500 ML ONE (13:26)
[2021-08-27] MEDS ORDERED: SODIUM CHLORIDE 0.9% 1000 ML 1,000 ML IV SCH (14:00)
[2021-08-27] MEDS ORDERED: LISINOPRIL 5 MG TAB PO SCH (14:00)
--- NOTE | 2021-08-27 14:00 | Event Note ---
Date: 08/27/21 Cardiac catheterization completed via the right radial approach, no complications. We found essentially angiographically near normal coronary arteries. Left ventricular systolic ejection fraction was about 50%, with evidence of mild hypokinesis of the mid anterior wall. Recommendations: Patient may be discharged on aspirin 81, Plavix 75, lisinopril 5, Imdur 30 mg. I am holding off on beta-jimmie therapy due to resting bradycardia. Outpatient cardiac follow-up in 7 days.
--- NOTE | 2021-08-27 14:22 | Discharge Summary ---
Providers - Providers Date of Admission: 08/26/21 22:50 Date of discharge: 08/27/21 Attending physician: RICK ADAMS MD 08/26/21 Consult to Cardiac Rehabilitation [CONS] Routine Reason For Exam: Phase I 08/26/21 22:50 Consult to Cardiology [CONS] Routine Consulting Provider: MARY RAMOS Reason For Exam: chest pain 08/27/21 13:50 Consult to Cardiac Rehabilitation [CONS] Routine Reason For Exam: Cardiac Rehab Evaluation Primary care physician: JAMAICA HACKETT Hospitalization Reason for admission: ACS rule out Condition: Stable Hospital course: Patient is a 51-year-old male with a history of tobacco dependence who presented with chest pain. He was admitted for ACS rule out. Echocardiogram revealed mildly decreased ejection fraction of 45 to 50%. Cardiology was consulted. Stress test was canceled for cardiac cath. Cardiac cath revealed no significant coronary artery disease. Patient was started on goal-directed medical therapy and discharged home in stable. Disposition: 01 HOME / SELF CARE / HOMELESS Final Discharge Diagnosis (Prints w/discharge instructions): Unstable angina. NSTEMI type II. Tobacco dependence Time spent for discharge: 30 minutes Core Measure Documentation - Palliative Care Palliative Care/ Comfort Measures: Not Applicable - Core Measures Any of the following diagnoses?: heart failure - Heart Failure Discharge Requirements SWETHA/ARB for LVSD if EF <40%: Yes Beta jimmie at discharge: No Reason for no beta jimmie on DC: Bradycardia Exam - Physical Exam Narrative exam: GENERAL: Thin male. In no acute distress. HEENT: Normocephalic. Atraumatic. NECK: Supple. CHEST/LUNGS: CTAB on room air HEART/CARDIOVASCULAR: RRR. No murmur, rubs or gallops appreciated. ABDOMEN: +BS. NT/ND. SKIN: No rashes noted. NEURO: No focal motor deficit. Follows all commands. MUSCULOSKELETAL: No joint effusion EXTREMITIES: R wrist pressure dressing in place. No cyanosis, clubbing or edema. PSYCH: Cooperative. - Constitutional Vitals: Temp Pulse Resp BP Pulse Ox 97.9 F 53 L 16 152/87 100 08/27/21 08:01 08/27/21 08:01 08/27/21 08:01 08/27/21 08:01 08/27/21 08:01 Plan Care Plan Goals: Please follow-up with your primary care provider. If you do not have one, please try to find one. We have referred you to a PCP affiliated with our hospital. You can schedule an appointment with them. Please follow-up with Dr. Caceres within the next week. Please start taking all medications as a prescribed to you. Follow up with: SHANNON CACERES MD [Staff Physician] - 7 Days JAMAICA HACKETT MD [Primary Care Provider] - 3-5 Days Forms: Work/School Release Form Prescriptions: Aspirin EC [Halfprin EC] 81 mg PO QDAY 90 Days #90 tablet ISOSORBIDE MONOnitrate [Imdur ER] 30 mg PO QDAY 90 Days #90 tablet Clopidogrel [Plavix] 75 mg PO QDAY 90 Days #90 tablet lisinopriL [Zestril TAB] 5 mg PO QDAY 90 Days #3090 tablet
[2021-08-27 16:02] VITALS: BP 140/92
--- NOTE | 2021-08-27 16:19 | Cardiac Catherization Report ---
DATE OF SERVICE: 08/27/2021 CARDIAC CATHETERIZATION REPORT REASON FOR PROCEDURE: The patient is a 51-year-old man with chronic tobacco abuse, admitted with chest pain. His EKG showed deep anterior T-wave inversions, associated with mild elevation of the troponin levels. We were concerned about a non-ST elevation myocardial infarction and anterior ischemia, a cardiac catheterization was recommended. PROCEDURES: 1. Left heart catheterization. 2. Selective left and right coronary angiography. 3. Left ventricular angiography. 4. Sedation time start 1322, end 1334. DESCRIPTION OF PROCEDURE: The patient was prepped and draped in a sterile fashion after informed consent. The right radial cath site was prepped and draped after a negative Prosper's test. The right radial artery was entered using Seldinger technique followed by placement of a 6-Macanese hydrophilic sheath. Routine radial cocktail was administered via the sheath. Selective left and right coronary angiography was performed using a #3.5 left Janelle and a #4 right Janelle. A pigtail catheter was used for left ventricular angiography. The catheters were then removed, sheaths removed, hemostasis achieved using a TR band. The patient was returned to the postprocedure unit in stable condition. There were no complications. FINDINGS: HEMODYNAMICS: Left ventricular end-diastolic pressure was 13, following coronary angiography. Ascending aortic pressure was 157/80. There was no significant pressure gradient on pullback across the aortic valve. CORONARY ANGIOGRAPHY: The left main coronary artery was short and angiographically normal. Left anterior descending artery and its diagonal branches were angiographically normal. No significant lesions were noted in the LAD or diagonal branches. There were mild irregularities of the circumflex system, this vessel was otherwise free of significant disease. The right coronary artery was a dominant, and similarly angiographically normal. There was mild hypokinesis of the anterior wall, but overall, left ventricular systolic function was well preserved, ejection fraction 50%. CONCLUSIONS: 1. No significant coronary artery disease, essentially, angiographically near normal coronary arteries. 2. Left ventricular systolic function at the lower limits of normal, ejection fraction estimated at 50%, with very mild anterior wall hypokinesis. RECOMMENDATIONS: Medical therapy and risk factor modification. TID: [id number] RECEIPT: [id number] [facility]
[2021-08-28] MEDS ORDERED: CLOPIDOGREL 75 MG TAB PO SCH (10:00)
[2021-08-28] MEDS ORDERED: ASPIRIN EC 81 MG TAB PO SCH (10:00)
--- NOTE | 2021-08-28 13:40 | Electrocardiograph Report ---
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
--- NOTE | 2021-08-28 13:42 | Electrocardiograph Report ---
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
--- NOTE | 2021-08-28 13:44 | Electrocardiograph Report ---
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
== END 2021-08-27 18:01 | disposition home or self-care (01) ==
LOC: ED 05:25 → INTOOBSV 22:50 → 4A 22:50
PROVIDERS: ADMIT Internal Medicine Geriatric Medicine; ATTEND Student in an Organized Health Care Education/Training Program
DX: I20.0 Unstable angina (principal); I21.4 Non-ST elevation (NSTEMI) myocardial infarction; R07.89 Other chest pain; F17.210 Nicotine dependence, cigarettes, uncomplicated; Z79.82 Long term (current) use of aspirin; Z79.899 Other long term (current) drug therapy
CPT/HCPCS: 36415; 71046; 80048; 80053; 80061; 84484; 85025; 85520; 85610; 85730; 93005; 93458; 96365; 96366; 96367; 96375; 96376; 99285; C1894; C8929; G0378; J1644; J1815; J2250; J2270; J3010; J3475; J7040; 85007; 93306; J3490; Q9967